=== PATIENT | male | born 1990 | race Caucasian/White ===

== ENCOUNTER 2017-06-03 17:52 | Emergency (ER) | payer BC ==
[~2017-06-03] VITALS: Ht 193 cm; Wt 93.2 kg
[~2017-06-03 17:52] MED LIST: NO HOME MEDICATIONS
[2017-06-03 17:56] VITALS: BP 141/73; TEMP 97.8
[2017-06-03] MEDS ORDERED: FLEXERIL 1010 MG/TAB PO (17:59)
[2017-06-03] MEDS ORDERED: COSENTYX P150 MG/1 M IM (17:59)
[2017-06-03] MEDS ORDERED: OMNICEF 300MG300 MG PO (18:16)
[2017-06-03 18:19] VITALS: PULSE 80
== END 2017-06-03 18:24 | disposition home or self-care (01) ==
LOC: COL.ER 17:52
DX: H66.92 Otitis media, unspecified, left ear (principal); L40.9 Psoriasis, unspecified; Z88.0 Allergy status to penicillin